=== PATIENT | male | born 1985 | race Caucasian/White ===

== ENCOUNTER → 2019-05-04 | Outpatient (CLI) | payer BC, OTHER ==
--- NOTE | 2019-05-04 16:50 | XR ---
EXAMINATION TYPE: XR orbit complete bilateral DATE OF EXAM: 05/04/2019 COMPARISON: NONE HISTORY: Pre-MRI TECHNIQUE: Orbit complete bilateral with 3 images including lateral and 2 frontal projections. FINDINGS: No metallic intraorbital foreign body is seen to prevent MRI study. IMPRESSION: As above.
--- NOTE | 2019-05-04 17:19 | MR ---
EXAMINATION TYPE: MR brain wo con DATE OF EXAM: 05/04/2019 COMPARISON: NONE HISTORY: G 44.229 chronic tension-type headache per order. TECHNIQUE: Multiplanar, multisequence imaging of the brain and brainstem is performed without IV cont rast. FINDINGS: Diffusion weighted images demonstrate no evidence of a recent infarct or other diffusion abnormality. There is no extraaxial fluid collection or significant white matter signal abnormality. The ventricu lar system and cisternal spaces are normal in size and appearance. The brain volume is age appropria te. Midline structures demonstrate normal morphology. The craniocervical junction appears within normal limits. Normal vascular flow voids are present. The visualized sinuses are clear and the globes are i ntact. IMPRESSION: Unremarkable study.
== END | disposition home or self-care (01) ==
LOC: RADMRIMAIN 16:19
PROVIDERS: ATTEND Psychiatry & Neurology Neurology
DX: G44.229 Chronic tension-type headache, not intractable (principal)
CPT/HCPCS: 70200; 70551

== ENCOUNTER 2021-02-22 05:49 | Inpatient (IN) | payer BC ==
[2021-02-22] MEDS ORDERED: SODIUM CHLORIDE 0.9% 500 ML 500 ML IV STA (06:19)
--- NOTE | 2021-02-22 06:22 | ED ---
General Adult HPI - General Source: patient, family, RN notes reviewed Mode of arrival: ambulatory Limitations: no limitations <Zechariah Holly - Last Filed: 02/22/21 11:21> <Clara Hernandez - Last Filed: 02/24/21 17:05> - General Chief complaint: Psychiatric Symptoms Stated complaint: Mental Health Time Seen by Provider: 02/22/21 06:04 - History of Present Illness Initial comments: 36-year-old male with a past medical history of hypertension, depression, anxiety currently on no daily medications presents to the emergency room for a chief complaint of suicide attempt. Patient reports he attempted to hang him self from the rafters this morning. States he had a rope around his neck and stepped off of the stool. Patient states his immediately walked in as soon as he stepped off the stool and was able to get him down. Patient states usually pain for a second. Patient states he did this because he is depressed. States that every day life is just getting to him. States that he has had suicidal thoughts for years.Patient has no other complaints at this time including shortness of breath, chest pain, abdominal pain, nausea or vomiting, headache, or visual changes. (Zechariah Holly) - Related Data Home Medications Medication Instructions Recorded Confirmed No Known Home Medications 02/22/21 02/22/21 Allergies Allergy/AdvReac Type Severity Reaction Status Date / Time No Known Allergies Allergy Verified 02/22/21 11:26 Review of Systems ROS Other: All systems not noted in ROS Statement are negative. <Zechariah Holly - Last Filed: 02/22/21 11:21> ROS Other: All systems not noted in ROS Statement are negative. <Clara Hernandez - Last Filed: 02/24/21 17:05> ROS Statement: Those systems with pertinent positive or pertinent negative responses have been documented in the HPI. Past Medical History Past Medical History: Hypertension History of Any Multi-Drug Resistant Organisms: None Reported Past Surgical History: No Surgical Hx Reported Past Psychological History: Anxiety, Depression Smoking Status: Current every day smoker Past Alcohol Use History: Abuse, Occasional Past Drug Use History: Marijuana - Past Family History Father Additional Family Medical History / Comment(s): Father is alive at age 59 with history of alcoholism and chronic pain. Mother Family Medical History: Cancer Additional Family Medical History / Comment(s): Mother at age 59 from lung cancer with history of smoking and alcoholism. Brother(s) Additional Family Medical History / Comment(s): Patient has 2 brothers that have history of alcoholism but are healthy otherwise. Sister(s) Additional Family Medical History / Comment(s): Patient has one sister with history of alcoholism and marijuana use. <Zechariah Holly - Last Filed: 02/22/21 11:21> General Exam Limitations: no limitations General appearance: alert Head exam: Present: atraumatic Eye exam: Present: normal appearance, PERRL. Absent: scleral icterus ENT exam: Present: normal exam, mucous membranes moist Neck exam: Present: full ROM, other (Patient has abrasions noted to the anterior neck, no ecchymosis) Respiratory exam: Present: normal lung sounds bilaterally. Absent: respiratory distress, wheezes, rales, rhonchi, stridor Cardiovascular Exam: Present: regular rate, normal rhythm, normal heart sounds. Absent: systolic murmur, diastolic murmur, rubs, gallop, clicks GI/Abdominal exam: Present: soft, normal bowel sounds. Absent: distended, tenderness, guarding, rebound, rigid <Zechariah Holly - Last Filed: 02/22/21 11:21> Course Vital Signs 02/22/21 02/22/21 05:49 09:31 Temperature 97.7 F Pulse Rate 99 67 Respiratory 22 18 Rate Blood Pressure 166/101 144/81 O2 Sat by Pulse 99 99 Oximetry Medical Decision Making - Lab Data Result diagrams: 02/22/21 06:23 02/22/21 06:23 <Zechariah Holly - Last Filed: 02/22/21 11:21> - Lab Data Result diagrams: 02/22/21 06:23 02/22/21 06:23 <Clara Hernandez - Last Filed: 02/24/21 17:05> - Medical Decision Making Vitals are stable. HPI physical exam as documented. Laboratory evaluation unremarkable. CTA of the head and neck was obtained which showed no significant diameter reduction to account for patient's symptoms. No traumatic injury to the carotids or vertebral arteries within the neck. Patient medically cleared for psychiatric evaluation at 0815. They're recommending inpatient management. Patient did sign himself in (Zechariah Holly) I was available for consultation in the emergency department. The history and physical exam were done by the midlevel provider. I was consulted for this patients care. I reviewed the case with the midlevel provider and based on their presentation of the patient, I agree with the assessment, medical decision making and plan of care as documented. Chart was dictated using Loop dictation software. Attempts were made to correct any dictation errors however some typographical errors may persist. Patient was seen during a national state of emergency due to the Covid-19 pandemic. (Clara Hernandez) - Lab Data Lab Results 02/22/21 02/22/21 02/22/21 Range/Units 06:23 06:23 06:23 WBC 6.7 (3.8-10.6) k/uL RBC 4.81 (4.30-5.90) m/uL Hgb 15.6 (13.0-17.5) gm/dL Hct 45.8 (39.0-53.0) % MCV 95.2 (80.0-100.0) fL MCH 32.4 (25.0-35.0) pg MCHC 34.0 (31.0-37.0) g/dL RDW 13.0 (11.5-15.5) % Plt Count 351 (150-450) k/uL MPV 6.1 Neutrophils % (Manual) 81 % Lymphocytes % (Manual) 14 % Monocytes % (Manual) 5 % Neutrophils # (Manual) 5.43 (1.3-7.7) k/uL Lymphocytes # (Manual) 0.94 L (1.0-4.8) k/uL Monocytes # (Manual) 0.34 (0-1.0) k/uL Nucleated RBCs 0 (0-0) /100 WBC Manual Slide Review Performed Sodium 140 (137-145) mmol/L Potassium 4.0 (3.5-5.1) mmol/L Chloride 104 (98-107) mmol/L Carbon Dioxide 27 (22-30) mmol/L Anion Gap 9 mmol/L BUN 19 (9-20) mg/dL Creatinine 0.85 (0.66-1.25) mg/dL Est GFR (CKD-EPI)AfAm >90 (>60 ml/min/1.73 sqM) Est GFR (CKD-EPI)NonAf >90 (>60 ml/min/1.73 sqM) Glucose 102 H (74-99) mg/dL Plasma Lactic Acid Leonard (0.7-2.0) mmol/L Calcium 9.6 (8.4-10.2) mg/dL Total Bilirubin 0.5 (0.2-1.3) mg/dL AST 20 (17-59) U/L ALT 13 (4-49) U/L Alkaline Phosphatase 49 (38-126) U/L Total Protein 7.2 (6.3-8.2) g/dL Albumin 4.7 (3.5-5.0) g/dL Salicylates <1.0 mg/dL Urine Opiates Screen Not Detected (NotDetected) Ur Oxycodone Screen Not Detected (NotDetected) Urine Methadone Screen Not Detected (NotDetected) Ur Propoxyphene Screen Not Detected (NotDetected) Acetaminophen <10.0 ug/mL Ur Barbiturates Screen Not Detected (NotDetected) U Tricyclic Antidepress Not Detected (NotDetected) Ur Phencyclidine Scrn Not Detected (NotDetected) Ur Amphetamines Screen Not Detected (NotDetected) U Methamphetamines Scrn Not Detected (NotDetected) U Benzodiazepines Scrn Not Detected (NotDetected) Urine Cocaine Screen Not Detected (NotDetected) U Marijuana (THC) Screen Not Detected (NotDetected) Serum Alcohol <10 mg/dL 02/22/21 Range/Units 06:23 WBC (3.8-10.6) k/uL RBC (4.30-5.90) m/uL Hgb (13.0-17.5) gm/dL Hct (39.0-53.0) % MCV (80.0-100.0) fL MCH (25.0-35.0) pg MCHC (31.0-37.0) g/dL RDW (11.5-15.5) % Plt Count (150-450) k/uL MPV Neutrophils % (Manual) % Lymphocytes % (Manual) % Monocytes % (Manual) % Neutrophils # (Manual) (1.3-7.7) k/uL Lymphocytes # (Manual) (1.0-4.8) k/uL Monocytes # (Manual) (0-1.0) k/uL Nucleated RBCs (0-0) /100 WBC Manual Slide Review Sodium (137-145) mmol/L Potassium (3.5-5.1) mmol/L Chloride (98-107) mmol/L Carbon Dioxide (22-30) mmol/L Anion Gap mmol/L BUN (9-20) mg/dL Creatinine (0.66-1.25) mg/dL Est GFR (CKD-EPI)AfAm (>60 ml/min/1.73 sqM) Est GFR (CKD-EPI)NonAf (>60 ml/min/1.73 sqM) Glucose (74-99) mg/dL Plasma Lactic Acid Leonard 0.9 (0.7-2.0) mmol/L Calcium (8.4-10.2) mg/dL Total Bilirubin (0.2-1.3) mg/dL AST (17-59) U/L ALT (4-49) U/L Alkaline Phosphatase (38-126) U/L Total Protein (6.3-8.2) g/dL Albumin (3.5-5.0) g/dL Salicylates mg/dL Urine Opiates Screen (NotDetected) Ur Oxycodone Screen (NotDetected) Urine Methadone Screen (NotDetected) Ur Propoxyphene Screen (NotDetected) Acetaminophen ug/mL Ur Barbiturates Screen (NotDetected) U Tricyclic Antidepress (NotDetected) Ur Phencyclidine Scrn (NotDetected) Ur Amphetamines Screen (NotDetected) U Methamphetamines Scrn (NotDetected) U Benzodiazepines Scrn (NotDetected) Urine Cocaine Screen (NotDetected) U Marijuana (THC) Screen (NotDetected) Serum Alcohol mg/dL Disposition Time of Disposition: 11:23 <Zechariah Holly P - Last Filed: 02/22/21 11:21> <Clara Hernandez - Last Filed: 02/24/21 17:05> Clinical Impression: Suicidal ideation, Attempted suicide Disposition: TRANSFER TO PSYCH HOSP/UNIT
[2021-02-22 06:57] LABS: ALT 13 U/L (4-49); AST 20 U/L (17-59); Acetaminophen <10.0 ug/mL; African American GFR (CKD) >90 (>60 ml/min/1.73 sqM); Albumin 4.7 g/dL (3.5-5.0); Alcohol <10 mg/dL; Alkaline Phosphatase 49 U/L (38-126); Anion Gap 9 mmol/L; Blood Urea Nitrogen 19 mg/dL (9-20); Calcium 9.6 mg/dL (8.4-10.2); Carbon Dioxide 27 mmol/L (22-30); Chloride 104 mmol/L (98-107); Glucose 102 mg/dL (74-99); Non-African American GFR(CKD) >90 (>60 ml/min/1.73 sqM); Salicylate <1.0 mg/dL; Sodium 140 mmol/L (137-145); Total Bilirubin 0.5 mg/dL (0.2-1.3); Total Protein 7.2 g/dL (6.3-8.2)
[2021-02-22 07:01] LABS: HCT 45.8 % (39.0-53.0); HGB 15.6 gm/dL (13.0-17.5); MCH 32.4 pg (25.0-35.0); MCV 95.2 fL (80.0-100.0); Mean Platelet Volume 6.1; Platelet Count 351 k/uL (150-450); RBC 4.81 m/uL (4.30-5.90); WBC 6.7 k/uL (3.8-10.6)
--- NOTE | 2021-02-22 08:10 | CT ---
EXAMINATION TYPE: CT angio head neck DATE OF EXAM: 02/22/2021 COMPARISON: None HISTORY: Intentional hanging CT DLP: 1625.9 mGycm CONTRAST: Performed without and with IV Contrast, patient injected with 65 mL of Isovue 370. Combination Contrast CTA cervical carotids and [place] of [place] CTA cervical carotids with 3-D recons truction Contrast CTA of the cervical carotids was performed 3-D reconstruction imaging obtained at a separate workstation. Right carotid system: No significant plaque is seen of the right common carotid artery. There is No significant plaque also noted at the carotid bulb and proximal ICA. No significant diameter reductio n. ECA is patent. Right vertebral artery appears unremarkable. Left carotid system: No significant plaque is seen of the left common carotid artery. There is No si gnificant plaque also noted at the carotid bulb and proximal ICA. No significant diameter reduction. ECA is patent. Left vertebral artery appears unremarkable. IMPRESSION: 1. No significant diameter reduction to account for the patient's symptoms. No traumatic injury to th e carotids or vertebral arteries within the neck. CTA upper [place] of [place] with 3-D reconstruction Contrast CTA of the upper [place] of [place] was performed 3-D reconstruction imaging obtained at a separate workstation. Vertebrobasilar system as well as intracranial portions of the internal carotid arteries and their ma polina tributaries are patent. I do not see evidence for sizable aneurysm or vascular malformation. Pl ease note MRI provides greater sensitivity and specificity. Visualized brain appears grossly unremar kable. IMPRESSION: 1. No significant abnormality. NASCET criteria was used in interpretation of this exam?
[2021-02-22 08:28] LABS: Amphetamine Screen,Urine Not Detected (NotDetected); Barbiturate Screen,Urine Not Detected (NotDetected); Benzodiazepines Screen,Urine Not Detected (NotDetected); Cocaine Screen,Urine Not Detected (NotDetected); Methadone Screen, Urine Not Detected (NotDetected); Opiate Screen,Urine Not Detected (NotDetected); Oxycodone Screen, Urine Not Detected (NotDetected); Phencyclidine Screen,Urine Not Detected (NotDetected); Tricyclic Antidepressant,Urine Not Detected (NotDetected); Urn Cannabinoid Scrn Not Detected (NotDetected)
[2021-02-22 08:48] LABS: Lymphocytes # (M) 0.94 k/uL (1.0-4.8); Monocytes # (M) 0.34 k/uL (0-1.0); Neutrophils # (M) 5.43 k/uL (1.3-7.7); Neutrophils % (M) 81 %; Nucleated Red Blood Cells 0 /100 WBC (0-0); Total Cells Counted 100
[2021-02-22] MEDS ORDERED: NICOTINE 21MG/24HR PATCH TRANSDERM STA (08:55)
[2021-02-22] MEDS ORDERED: MAG HYDROX/AL HYDROX/SIMETH 30 ML CUP PO PRN (11:12)
[2021-02-22] MEDS ORDERED: MAGNESIUM HYDROXIDE 2,400 MG/10 ML CUP PO PRN (11:12)
[2021-02-22] MEDS ORDERED: LORazepam 2 MG/ML INJ IM PRN (11:14)
[2021-02-22] MEDS ORDERED: HALOPERIDOL LACTATE 5 MG/ML 1 ML VIAL IM PRN (11:14)
[2021-02-22] MEDS ORDERED: LORazepam 2 MG/ML INJ IV STA (11:14)
[2021-02-22] MEDS: ACETAMINOPHEN TAB 325 MG TAB PO PRN (13:01)
[2021-02-22] MEDS: LORazepam 1 MG TAB PO PRN (21:11)
[2021-02-22] MEDS: haloperidoL 5 MG TAB PO PRN (22:25)
[2021-02-23] MEDS: ACETAMINOPHEN TAB 325 MG TAB PO PRN (01:15)
[2021-02-23] MEDS ORDERED: diphenhydrAMINE 50 MG CAP PO STA (01:33)
[2021-02-23] MEDS: NICOTINE 21MG/24HR PATCH TRANSDERM SCH (07:47)
[2021-02-23] MEDS: SERTRALINE 50 MG TAB PO SCH (12:15)
[2021-02-23] MEDS: LORazepam 1 MG TAB PO PRN (20:29)
[2021-02-23] MEDS: traZODone HCL 50 MG TAB PO PRN (20:29)
[2021-02-24 07:04] VITALS: RESP 16; TEMP 97.4
[2021-02-24] MEDS: SERTRALINE 50 MG TAB PO SCH (07:57)
[2021-02-24] MEDS: NICOTINE 21MG/24HR PATCH TRANSDERM SCH (07:58)
[2021-02-24] MEDS: ACETAMINOPHEN TAB 325 MG TAB PO PRN ×2 (12:21→20:55)
--- NOTE | 2021-02-24 15:10 | P.HP ---
Psychiatric H&P - . H&P Date: 02/23/21 History & Physical: Allergies Allergy/AdvReac Type Severity Reaction Status Date / Time No Known Allergies Allergy Verified 02/22/21 11:26 Vital Signs Temp 97.6 F 02/23/21 01:19 Pulse 80 02/23/21 01:19 Resp 18 02/23/21 01:19 BP 144/95 02/23/21 01:19 Pulse Ox 98 02/22/21 11:52 Intake & Output 02/22/21 02/23/21 02/23/21 18:59 06:59 18:59 Weight 74.2 kg Laboratory Last Values WBC 6.7 k/uL (3.8-10.6) 02/22/21 06:23 RBC 4.81 m/uL (4.30-5.90) 02/22/21 06:23 Hgb 15.6 gm/dL (13.0-17.5) 02/22/21 06:23 Hct 45.8 % (39.0-53.0) 02/22/21 06:23 MCV 95.2 fL (80.0-100.0) 02/22/21 06:23 MCH 32.4 pg (25.0-35.0) 02/22/21 06:23 MCHC 34.0 g/dL (31.0-37.0) 02/22/21 06:23 RDW 13.0 % (11.5-15.5) 02/22/21 06:23 Plt Count 351 k/uL (150-450) 02/22/21 06:23 MPV 6.1 02/22/21 06:23 Neutrophils % (Manual) 81 % 02/22/21 06:23 Lymphocytes % (Manual) 14 % 02/22/21 06:23 Monocytes % (Manual) 5 % 02/22/21 06:23 Neutrophils # (Manual) 5.43 k/uL (1.3-7.7) 02/22/21 06:23 Lymphocytes # (Manual) 0.94 k/uL (1.0-4.8) L 02/22/21 06:23 Monocytes # (Manual) 0.34 k/uL (0-1.0) 02/22/21 06:23 Nucleated RBCs 0 /100 WBC (0-0) 02/22/21 06:23 Manual Slide Review Performed 02/22/21 06:23 Sodium 140 mmol/L (137-145) 02/22/21 06:23 Potassium 4.0 mmol/L (3.5-5.1) 02/22/21 06:23 Chloride 104 mmol/L (98-107) 02/22/21 06:23 Carbon Dioxide 27 mmol/L (22-30) 02/22/21 06:23 Anion Gap 9 mmol/L 02/22/21 06:23 BUN 19 mg/dL (9-20) 02/22/21 06:23 Creatinine 0.85 mg/dL (0.66-1.25) 02/22/21 06:23 Est GFR (CKD-EPI)AfAm >90 (>60 ml/min/1.73 sqM) 02/22/21 06:23 Est GFR (CKD-EPI)NonAf >90 (>60 ml/min/1.73 sqM) 02/22/21 06:23 Glucose 102 mg/dL (74-99) H 02/22/21 06:23 Plasma Lactic Acid Leonard 0.9 mmol/L (0.7-2.0) 02/22/21 06:23 Calcium 9.6 mg/dL (8.4-10.2) 02/22/21 06:23 Total Bilirubin 0.5 mg/dL (0.2-1.3) 02/22/21 06:23 AST 20 U/L (17-59) 02/22/21 06:23 ALT 13 U/L (4-49) 02/22/21 06:23 Alkaline Phosphatase 49 U/L (38-126) 02/22/21 06:23 Total Protein 7.2 g/dL (6.3-8.2) 02/22/21 06:23 Albumin 4.7 g/dL (3.5-5.0) 02/22/21 06:23 Salicylates <1.0 mg/dL 02/22/21 06:23 Urine Opiates Screen Not Detected (NotDetected) 02/22/21 06:23 Ur Oxycodone Screen Not Detected (NotDetected) 02/22/21 06:23 Urine Methadone Screen Not Detected (NotDetected) 02/22/21 06:23 Ur Propoxyphene Screen Not Detected (NotDetected) 02/22/21 06:23 Acetaminophen <10.0 ug/mL 02/22/21 06:23 Ur Barbiturates Screen Not Detected (NotDetected) 02/22/21 06:23 U Tricyclic Antidepress Not Detected (NotDetected) 02/22/21 06:23 Ur Phencyclidine Scrn Not Detected (NotDetected) 02/22/21 06:23 Ur Amphetamines Screen Not Detected (NotDetected) 02/22/21 06:23 U Methamphetamines Scrn Not Detected (NotDetected) 02/22/21 06:23 U Benzodiazepines Scrn Not Detected (NotDetected) 02/22/21 06:23 Urine Cocaine Screen Not Detected (NotDetected) 02/22/21 06:23 U Marijuana (THC) Screen Not Detected (NotDetected) 02/22/21 06:23 Serum Alcohol <10 mg/dL 02/22/21 06:23 02/23/21 10:19 IDENTIFYING DATA: Patient is a this is a 36-year-old male. He is the father of 2 children ages 11 and 14. He went to school through 11th grade. 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 HPI: Patient presented to the hospital status post suicide attempt. According to his records he attempted to hang himself from a rafters yesterday morning. He had a rope around his neck and stepped off the stool. The patient's immediately walked in as soon as he stepped off the stool and was able to get him down. He reported being unhappy with his relationship with his and children. Patient states he overheard his children being upset with the way he is treating them. He states at times he gets upset with them and raises his voice. Patient also reported having work-related stress. Patient states he continues to struggle dealing with the of his mother who had in 2016. Patient states for the last 1 year he has been feeling increasingly depressed, helpless, hopeless and has sleep difficulties. Patient states he had to miss work due to his depression. Patient become emotional and tearful while reported that he feels glad being alive. He then states "I family needs me ". Patient also reported being worried about his family and work. Denied having panic attacks. Denied having symptoms of donn or hypomania. He also denied having symptoms of thought disorder. Patient states in 2016 he was admitted into this facility due to severe depression and that was shortly after his mother had . She states that he was put on Celexa which did not help. It should be noted the patient received when necessary medications last night which include Ativan, Zyprexa and Haldol for agitation. PAST PSYCHIATRIC HISTORY: Patient states that 2016 he was admitted into this facility as a result of depression and I will shortly after his mother had . To the patient he was diagnosed with depression and started on Celexa that did not help. Patient denies having any previous suicide attempts. ALLERGIES: as per EMR CHEMICAL DEPENDENCY HISTORY: patient states that he smokes 1-1/2 pack of cigarettes daily. He states he quit alcohol in 2016. He states that he has been known to consume excessive amount of alcohol. Had episodes of being intoxicated and had a DUI. Patient reported smoking marijuana occasionally. He states that he might have an energy drink every other day. Patient denies illicit drug use . UDS FAMILY PSYCHIATRIC/SUBSTANCE USE HISTORY: None Reporteds SOCIAL HISTORY: Patient was born and raised iaccording to the patient he was born and raised in [facility]. His father was a mounter [employer] area and his mother was staying at home mother and homemaker. She in 2016. He has 2 brothers and 1 sister. Patient states there was some neglected growing up because his parents used to leave him with his sister in order to go out to a local bar. Patient denies being a victim of physical or sexual abuse. Patient states that she went to school to the 11th grade area he has been to his current for almost 12 years. They have 2 children. 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 MENTAL STATUS EXAM: General Appearance: Patient appears to matches stated age is alert cooperate. Patient appears to have fair hygiene and grooming. Behavior: Patient is seated without any agitated behavior Speech: Patient's speech i fluent and nonpressure. Mood/Affect: Patient reports their mood i " depressd " , affect is congruent and constricted. Suicidality/Homicidality: Patient denies having suicidal or homicidal ideations intent or plan , however as mentioned in HPI had a serious suicide attempt yesterday morning. Perceptions: Patient denies any visual hallucination [and denies any auditory hallucinatios Though content/process [There is no evidence of any delusional thought content and thought process is linear and goal-directe.] Memory and concentration: AOX3, grossly intact for the purposes of this session. Can spell "WORLD" backwards Judgment and insight are Poor STRENGTHS/WEAKNESSES: strength is that patient is his is his main support Weakness is that patien [has poor judgment and is impulsie] INTELLECT averae IMPRESSIONS: Major depressive disorder recurrent severe without psychotic features] cannabis use disorder Nicotine use disorder PLAN: -Patient is admitted unde voluntay status to [facility] for stabilization of psychiatric symptoms and safety. Patient has jimenez adult voluntary form ad medication conset and is placed in patient's chart. -Medications : Will start patient on Zoloft 50 mg daily and trazodone 50 mg nightly as needed insomnia. -Ativa and Haldl PRN for agitation/aggressio -Patient was informed of the risks, benefits and side effects of the medication and patient verbally consented to taking the medications. Patient signed med consent form and was placed in chart. -Internal Medicine consult to perform medical evaluation and physical. -NRT - nicotine patch -SW on board for discharge planning. Encourage patient to participate in groups to work on coping skills. 02/24/21 15:02
--- NOTE | 2021-02-24 15:10 | P.PN ---
Progress Note - Text Progress Note Date: 02/24/21 Interval History: Patient was seen wandering the hallways and was directable and agreeable to kenia blas with repairer typewriter in the office. Patient is a this is a 36-year-old male. He is the father of 2 children ages 11 and 14. He went to school through 11th grade. 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 He was admitted status post suicide attempt by hanging self. He is being treated for depression. He indicated tolerating and responding favorably to his current medication regimen which include Zoloft and trazodone. He states the depression is improving. He states he slept well last night. Patient states he is benefiting from group therapy sessions. He states that he is a practicing how to let go. At this time patient denies any suicidal or homical ideations, intent or plan. Patient denies any auditory, visual hallucinations and denies any paranoia or delusions. Patient denies any side effects from the medications and has been compliant with meds. Mental Status Exam: General Appearance: Patient appears to matches stated age is alert cooperate. Patient appears to have fair hygiene and grooming. Behavior: Patient is seated without any agitated behavior Speech: Patient's speech i fluent and nonpressure. Mood/Affect: Patient reports their mood i " depressd " , affect is congruent and constricted. Suicidality/Homicidality: Patient denies having suicidal or homicidal ideations intent or plan , however he had a serious suicide attempt before he was admitted. Perceptions: Patient denies any visual hallucination and denies any auditory hallucinatios Though content/process There is no evidence of any delusional thought content and thought process is linear and goal-directe. Memory and concentration: AOX3, grossly intact for the purposes of this session. Can spell "WORLD" backwards Judgment and insight are Poor Assessment Major depressive disorder recurrent severe without psychotic features cannabis use disorder Nicotine use disorder Plan: -Patient continues to meet criteria for inpatient psychiatric admission for symptom stabilization and safety. - Continue Zoloft 50 MG daily and trazodone 50 MG nightly as needed insomnia and monitor -When necessary Ativan and Haldol for agitation/aggression. -NRT - nicotine patch -SW on board for discharge planning. Encouraged the patient to participate in milieu.
[2021-02-24] MEDS: LORazepam 1 MG TAB PO PRN (21:20)
[2021-02-24] MEDS: traZODone HCL 50 MG TAB PO PRN (21:20)
[2021-02-24] MEDS: haloperidoL 5 MG TAB PO PRN (22:20)
[2021-02-25] MEDS: ACETAMINOPHEN TAB 325 MG TAB PO PRN (07:11)
[2021-02-25 07:19] VITALS: BP 141/91; PULSE 87
[2021-02-25] MEDS: SERTRALINE 50 MG TAB PO SCH (07:37)
[2021-02-25] MEDS: NICOTINE 21MG/24HR PATCH TRANSDERM SCH (07:37)
--- NOTE | 2021-02-25 11:35 | P.DS ---
Providers Date of admission: 02/22/21 11:22 Expected date of discharge: 02/25/21 Attending physician: Mitchell Ivory MD Consults: 02/25/21 09:21 Consult Physician Routine Consulting Provider: Syed Ugalde Consult Reason/Comments: H and P Do you want consulting provider notified?: Yes Primary care physician: Yefri Perry - Discharge Diagnosis(es) (1) Major depressive disorder, recurrent, severe w/o psychotic behavior Current Visit: Yes Status: Acute Priority: High (2) Anxiety disorder Current Visit: Yes Status: Acute Priority: Medium Hospital Course: Admission HPI: Initial psychiatric evaluation was completed by Dr. Eddy on 02/23/2021 who wrote: "Patient is a this is a 36-year-old male. He is the father of 2 children ages 11 and 14. He went to school through 11th grade. 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 Patient presented to the hospital status post suicide attempt. According to his records he attempted to hang himself from a rafters yesterday morning. He had a rope around his neck and stepped off the stool. The patient's immediately walked in as soon as he stepped off the stool and was able to get him down. He reported being unhappy with his relationship with his and children. Patient states he overheard his children being upset with the way he is treating them. He states at times he gets upset with them and raises his voice. Patient also reported having work-related stress. Patient states he continues to struggle dealing with the of his mother who had in 2016. Patient states for the last 1 year he has been feeling increasingly depressed, helpless, hopeless and has sleep difficulties. Patient states he had to miss work due to his depression. Patient become emotional and tearful while reported that he feels glad being alive. He then states "I family needs me ". Patient also reported being worried about his family and work. Denied having panic attacks. Denied having symptoms of donn or hypomania. He also denied having symptoms of thought disorder. Patient states in 2016 he was admitted into this facility due to severe depression and that was shortly after his mother had . She states that he was put on Celexa which did not help. It should be noted the patient received when necessary medications last night which include Ativan, Zyprexa and Haldol for agitation. Patient states that 2015 he was admitted into this facility as a result of depression and I will shortly after his mother had . To the patient he was diagnosed with depression and started on Celexa that did not help. Patient denies having any previous suicide attempts." Hospital course: Upon admission to the unit patient was initially endorsing significant symptoms of depression who presented with a mood congruent affect is constricted in range. Patient was however directable and agreeable to commence treatment. The patient was started on a regimen of Zoloft and trazodone for management of his depression and anxiety and insomnia. The patient pursued both in individual and milieu therapies with high participation. He spoke of his stressors in group. He is adherent with his medications and reported no significant side effects aside from mild sedation. On the day of discharge, patient is not reporting any suicidal or homicidal ideation, intention, and/or plan. He is not reporting any access to firearms or other weapons. He expresses a strong desire to live for himself and for his family. He understands that if he was to be suicidal that he needs to call for help. The patient does express future orientation and is excited to go back to work and to support his family. He is not reporting any auditory or visual hallucinations. He denies any paranoia or delusions. Prior to discharge, family meeting will be arranged by the social worker psychiatric to answer any questions and ensure safety. Patient was counseled on his medications the need for regular adherence. It is also strongly encouraged to follow-up with his outpatient appointments. Mental status exam: General Appearance: Patient appears to be stated age is alert, pleasant, and cooperative. Patient is in no acute distress and has good hygiene and grooming. Behavior: Patient is calmly seated without any agitated behavior. Friendly on approach. Eye contact is appropriate. Speech: Patient's speech is fluent and nonpressured. Mood/Affect: Patient reports their mood is "feeling ready to go." Affect is congruent and euthymic. Suicidality/Homicidality: Patient denies having any suicidal or homicidal ideation intent or plan. Perceptions: Patient denies any auditory or visual hallucinations. Though content/process: There is no evidence of any delusional thought content and thought process is linear and goal-directed. He is future oriented. Memory and concentration: AOX3, grossly intact for the purposes of this session. Can spell "WORLD" backwards correctly. Judgment and insight: Improved with guarded prognosis Vital Signs Temp 97.4 F L 02/25/21 06:38 Pulse 87 02/25/21 06:38 Resp 16 02/25/21 06:38 BP 141/91 02/25/21 06:38 Pulse Ox 98 02/22/21 11:52 Impression: Major depressive disorder recurrent severe without psychotic features cannabis use disorder Nicotine use disorder Plan: -Continue with discharge today as patient has improved and stabilized psychiatrically and is not currently an imminent threat to himself and/or others. Patient will remain at chronically elevated risk for harm to self and/or others due to his prior attempt at suicide. -Continue medications: Zoloft 50 mg by mouth daily for depression/anxiety Trazodone 50 mg by mouth at bedtime when necessary for insomnia -Patient was counseled on the need for medication compliance and appropriate follow-up at mental health and also primary care for medical issues. Patient verbalized understanding and agreed. -Social work to arrange for and conduct family meeting to ensure safety upon discharge and answer any questions/concerns. Social work also to arrange for patients follow up appointments for psychiatric care along with follow up with primary care provider. -Patient counseled on abstaining from recreational drugs and marijuana and alcohol. Was informed/educated on the adverse effects on their physical and mental health. Patient verbally agreed and understood. -Patient was instructed to return to the hospital or seek immediate medical care if their psychiatric or medical symptoms do worsen or reoccur. -Psychoeducation and supportive therapy provided to patient. Risks and benefits of pharmacological treatment versus the risks and benefits of nontreatment weight and discussed. Informed consent discussion held. Common side effects of psychotropics discussed such as, but not limited to headache, GI disturbance, sexual dysfunction, movement disorders, sedation, and orthostatic hypotension. Life threatening and blackbox warnings of prescribed medications also discussed. Potential risks of operating a vehicle or heavy machinery discussed with patient at length. Advised on importance of compliance and a reliable and responsible manner. Patient advised to review FDA consumer labeling of all medications prior to taking. Patient verbalized understanding of potential risks, and agrees with current treatment plan. Patient advised to medically contact physician/emergency personnel if any acute changes in condition occur. Allergies Allergy/AdvReac Type Severity Reaction Status Date / Time No Known Allergies Allergy Verified 02/22/21 11:26 Laboratory Results WBC 6.7 k/uL (3.8-10.6) 02/22/21 06:23 RBC 4.81 m/uL (4.30-5.90) 02/22/21 06:23 Hgb 15.6 gm/dL (13.0-17.5) 02/22/21 06:23 Hct 45.8 % (39.0-53.0) 02/22/21 06:23 MCV 95.2 fL (80.0-100.0) 02/22/21 06:23 MCH 32.4 pg (25.0-35.0) 02/22/21 06:23 MCHC 34.0 g/dL (31.0-37.0) 02/22/21 06:23 RDW 13.0 % (11.5-15.5) 02/22/21 06:23 Plt Count 351 k/uL (150-450) 02/22/21 06:23 MPV 6.1 02/22/21 06:23 Neutrophils % (Manual) 81 % 02/22/21 06:23 Lymphocytes % (Manual) 14 % 02/22/21 06:23 Monocytes % (Manual) 5 % 02/22/21 06:23 Neutrophils # (Manual) 5.43 k/uL (1.3-7.7) 02/22/21 06:23 Lymphocytes # (Manual) 0.94 k/uL (1.0-4.8) L 02/22/21 06:23 Monocytes # (Manual) 0.34 k/uL (0-1.0) 02/22/21 06:23 Nucleated RBCs 0 /100 WBC (0-0) 02/22/21 06:23 Manual Slide Review Performed 02/22/21 06:23 Sodium 140 mmol/L (137-145) 02/22/21 06:23 Potassium 4.0 mmol/L (3.5-5.1) 02/22/21 06:23 Chloride 104 mmol/L (98-107) 02/22/21 06:23 Carbon Dioxide 27 mmol/L (22-30) 02/22/21 06:23 Anion Gap 9 mmol/L 02/22/21 06:23 BUN 19 mg/dL (9-20) 02/22/21 06:23 Creatinine 0.85 mg/dL (0.66-1.25) 02/22/21 06:23 Est GFR (CKD-EPI)AfAm >90 (>60 ml/min/1.73 sqM) 02/22/21 06:23 Est GFR (CKD-EPI)NonAf >90 (>60 ml/min/1.73 sqM) 02/22/21 06:23 Glucose 102 mg/dL (74-99) H 02/22/21 06:23 Plasma Lactic Acid Leonard 0.9 mmol/L (0.7-2.0) 02/22/21 06:23 Calcium 9.6 mg/dL (8.4-10.2) 02/22/21 06:23 Total Bilirubin 0.5 mg/dL (0.2-1.3) 02/22/21 06:23 AST 20 U/L (17-59) 02/22/21 06:23 ALT 13 U/L (4-49) 02/22/21 06:23 Alkaline Phosphatase 49 U/L (38-126) 02/22/21 06:23 Total Protein 7.2 g/dL (6.3-8.2) 02/22/21 06:23 Albumin 4.7 g/dL (3.5-5.0) 02/22/21 06:23 Salicylates <1.0 mg/dL 02/22/21 06:23 Urine Opiates Screen Not Detected (NotDetected) 02/22/21 06:23 Ur Oxycodone Screen Not Detected (NotDetected) 02/22/21 06:23 Urine Methadone Screen Not Detected (NotDetected) 02/22/21 06:23 Ur Propoxyphene Screen Not Detected (NotDetected) 02/22/21 06:23 Acetaminophen <10.0 ug/mL 02/22/21 06:23 Ur Barbiturates Screen Not Detected (NotDetected) 02/22/21 06:23 U Tricyclic Antidepress Not Detected (NotDetected) 02/22/21 06:23 Ur Phencyclidine Scrn Not Detected (NotDetected) 02/22/21 06:23 Ur Amphetamines Screen Not Detected (NotDetected) 02/22/21 06:23 U Methamphetamines Scrn Not Detected (NotDetected) 02/22/21 06:23 U Benzodiazepines Scrn Not Detected (NotDetected) 02/22/21 06:23 Urine Cocaine Screen Not Detected (NotDetected) 02/22/21 06:23 U Marijuana (THC) Screen Not Detected (NotDetected) 02/22/21 06:23 Serum Alcohol <10 mg/dL 02/22/21 06:23 Patient Condition at Discharge: Stable Plan - Discharge Summary Discharge Rx Participant: No New Discharge Prescriptions: New traZODone HCL [Desyrel] 50 mg PO HS PRN 30 Days tab PRN Reason: Insomnia Nicotine 21Mg/24Hr Patch [Habitrol] 1 patch TRANSDERM DAILY 30 Days patch Sertraline [Zoloft] 50 mg PO DAILY 30 Days tab Discharge Medication List Nicotine 21Mg/24Hr Patch [Habitrol] 1 patch TRANSDERM DAILY 30 Days patch 02/25/21 [Rx] Sertraline [Zoloft] 50 mg PO DAILY 30 Days tab 02/25/21 [Rx] traZODone HCL [Desyrel] 50 mg PO HS PRN 30 Days tab 02/25/21 [Rx] Follow up Appointment(s)/Referral(s): [facility] [place] [Outside] - 02/28/21 9:00 am (Please call upon discharge to provide email for virtual appointment ) Yefri Perry MD [Primary Care Provider] - 1-2 days Activity/Diet/Wound Care/Special Instructions: Activity and diet as tolerated. Avoid the use of street drugs and alcohol. Take all medications as prescribed. When you are in need of refills on your medications please contact your medical provider and/or outpatient psychiatrist to have this done. Please go to scheduled outpatient appointment for aftercare treatment. If symptoms return or become worse, call the crisis line at and/or go to the nearest emergency room for evaluation. Discharge Disposition: HOME SELF-CARE
--- NOTE | 2021-02-25 16:02 | P.CONS ---
History of Present Illness - Reason for Consult Consult date: 02/25/21 Medical management Requesting physician: Mitchell Ivory - Chief Complaint Depressed - History of Present Illness Consultation: This is a 36-year-old patient, follows with Dr. Yefri Perry. Patient was making attempt to commit suicide by rope around his neck. He was about to take the stool given his walked in the room. Patient has been somewhat depressed since his lost his mother about for 5 years ago. Is also having some family issues. He had been taking antidepressants previously. Patient did drink somewhat heavy alcohol until 5 years ago. Patient does smoke a pack and a half a day. Does marijuana sometimes. Denies use of any other recreational drugs. Patient's sleep had been disturbed. Oral intake has been fair. No fever no chills. He's been diagnosed with severe depression recurrent without psychosis. Does not take medications for other things. 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 Was heavy alcohol drinker up to 2016. Darvon occasionally. Denies use of any other recreational drugs. with 2 children Family history: Father alcoholism and chronic pain Physical examination: VITAL SIGNS: 97.4, 87, 16, 140/91, 98% room air GENERAL: BMI 24.2, sitting up in a chair, comfortable awake. EYES: Pupils equal. Conjunctiva normal. HEENT: External appearance of nose and ears normal, oral cavity grossly normal. NECK: JVD not raised; masses not palpable. HEART: First and second heart sounds are normal; no edema. LUNGS: Respiratory rate normal; clear to auscultation. ABDOMEN: Soft, nontender, liver spleen not palpable, no masses palpable. PSYCH: Alert and oriented x3; mood and affect normal. NEUROLOGICAL: Cranial nerves grossly intact; no facial asymmetry, power and sensation grossly intact. LYMPHATICS: No lymph nodes palpable in the axilla and neck INVESTIGATIONS, reviewed in the clinical context: WBC 6.7 hemoglobin 15.6 platelets 351 potassium 4 creatinine 0.85 Urine drug screen: Negative Serum alcohol less than 10 marijuana: Not detected acetaminophen less than 10 Assessment and plan: -Severe depression, recurrent without psychosis Patient on Desyrel, Zoloft -Chronic nicotine dependence, cigarette smoker Nicotine patch -Recreational marijuana use Advised against the same Care was discussed with the patient. Questions answered. Should follow-up with his family doctor. Counseled about smoking. Thank you Dr. Ivory Past Medical History Past Medical History: Hypertension History of Any Multi-Drug Resistant Organisms: None Reported Past Surgical History: No Surgical Hx Reported Past Psychological History: Anxiety, Depression Smoking Status: Current every day smoker Past Alcohol Use History: Abuse, Occasional Additional Past Alcohol Use History / Comment(s): Patient is a smoker one and a half to 2 packs of cigarettes per day for 16 years. He states he uses marijuana on a daily basis that he buys off the street. He does not have a medical marijuana card. He has history of alcoholism since age of [age] years old. 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 He is planning to be living alone as he is recently from his . Past Drug Use History: Marijuana - Past Family History Father Additional Family Medical History / Comment(s): Father is alive at age 59 with history of alcoholism and chronic pain. Mother Family Medical History: Cancer Additional Family Medical History / Comment(s): Mother at age 59 from lung cancer with history of smoking and alcoholism. Brother(s) Additional Family Medical History / Comment(s): Patient has 2 brothers that have history of alcoholism but are healthy otherwise. Sister(s) Additional Family Medical History / Comment(s): Patient has one sister with history of alcoholism and marijuana use. Medications and Allergies Home Medications Medication Instructions Recorded Confirmed Type Nicotine 21Mg/24Hr Patch [Habitrol] 1 patch TRANSDERM DAILY 30 Days 02/25/21 Rx patch Sertraline [Zoloft] 50 mg PO DAILY 30 Days tab 02/25/21 Rx traZODone HCL [Desyrel] 50 mg PO HS PRN 30 Days tab 02/25/21 Rx Allergies Allergy/AdvReac Type Severity Reaction Status Date / Time No Known Allergies Allergy Verified 02/22/21 11:26 Physical Exam Vitals: Vital Signs Temp Pulse Resp BP 02/25/21 06:38 97.4 F L 87 16 141/91 Results CBC & Chem 7: 02/22/21 06:23 02/22/21 06:23
== END 2021-02-25 13:50 | disposition home or self-care (01) | DRG 885 ==
LOC: EC 05:49 → 3MHU 11:22
PROVIDERS: ADMIT Psychiatry & Neurology Psychiatry; ATTEND Psychiatry & Neurology Psychiatry
DX: F33.2 Major depressive disorder, recurrent severe without psychotic features (principal); F17.210 Nicotine dependence, cigarettes, uncomplicated; F41.9 Anxiety disorder, unspecified; G47.00 Insomnia, unspecified; I10 Essential (primary) hypertension; T14.91XA Suicide attempt, initial encounter; F10.21 Alcohol dependence, in remission; Z79.899 Other long term (current) drug therapy; Z71.6 Tobacco abuse counseling; X83.8XXA Intentional self-harm by other specified means, initial encounter; Z80.1 Family history of malignant neoplasm of trachea, bronchus and lung; Z81.1 Family history of alcohol abuse and dependence
CPT/HCPCS: 36415; 70496; 70498; 80053; 80143; 80179; 80306; 80320; 82075; 83605; 85025; 96374; 99285